=== PATIENT | female | born 1960 | race Caucasian/White ===

== ENCOUNTER 2017-10-12 18:02 | Emergency (ER) | payer SELFPAY ==
[~2017-10-12] VITALS: Ht 157.5 cm; Wt 62.3 kg
[2017-10-12 18:40] VITALS: BP 116/77
--- NOTE | 2017-10-12 18:47 | NUR ---
PT AMBULATES BACK TO THE LOBBY
--- NOTE | 2017-10-12 19:19 | NUR ---
PATIENT LEFT WITHOUT BEING SEEN BY DR. MOSELEY. NO FURTHER CARE PROVIDED FOR PATIENT.
== END 2017-10-12 19:19 | disposition left against medical advice (07) ==
LOC: MED 18:02
DX: R51 Headache (principal); Z53.21 Procedure and treatment not carried out due to patient leaving prior to being seen by health care provider

== ENCOUNTER 2021-09-26 18:29 | Emergency (ER) | payer OTHER ==
[~2021-09-26] VITALS: Ht 157.5 cm; Wt 79.4 kg
[2021-09-26 18:30] VITALS: BP 129/79
--- NOTE | 2021-09-26 18:32 | NUR ---
MELVA SWEET VIA GURNEY TO BED 09.
--- NOTE | 2021-09-26 18:35 | NUR ---
61 y/o F BIBA from home c/o abdominal distention and RLQ abdominal pain. Patient states abdominal distention is chronic for past 3 months, however, worsened this morning. Patient also states new onset of tremors; reports nausea, vomiting x 2 episodes since last night. Pain 8/10, sharp/intermittent, non-radiating; worsens after eating. Pt also states cough with SOB and cough since last night. Pt states she was discharged two weeks ago with pulmonary embolism. SpO2 94% on room air. Pt placed onto water project manager. VSS. Bed locked in lowest position, side rails x 1. PMH: PE, lupus Meds: xarelto, prilosec, zofran ODT Allergies: sulfa, reglan
--- NOTE | 2021-09-26 18:35 | NUR ---
PMH: systemic lupus with cerebritis, PE
--- NOTE | 2021-09-26 18:59 | NUR ---
Dr. Adams is evaluating pt at bedside
--- NOTE | 2021-09-26 19:12 | NUR ---
Report and transfer of care endorsed to ANABEL Mullins.
[2021-09-26] MEDS ORDERED: ONDANSETRON 4 MG/2 ML VIAL IVP ONE (19:20)
[2021-09-26] MEDS ORDERED: LOPERAMIDE 2 MG CAP PO ONE (19:20)
[2021-09-26] MEDS ORDERED: NACL 0.9% 1,000 ML IV ONE (19:20)
[2021-09-26] MEDS ORDERED: MORPHINE SULFATE 4 MG/ML SYR IVP ONE ×2 (19:20→20:55)
--- NOTE | 2021-09-26 19:30 | NUR ---
RECEIVED PT IN BED 9 WITH C/O ABDOMINAL PAIN. PT IS MOANING SLIGHTLY. POINTS TO ABDOMEN AND SAYS "IT IS SO BLOATED"
--- NOTE | 2021-09-26 19:40 | NUR ---
IV ESTABLISHED RIGHT EJ, LABS DRAWN AND SENT TO LAB
[2021-09-26 19:54] LABS: BASOPHILS # (AUTO) 0.1 K/uL (0.00-0.22); BASOPHILS % (AUTO) 1.4 % (0.0-2.0); EOSINOPHILS # (AUTO) 0.1 K/uL (0-0.4); EOSINOPHILS % (AUTO) 1.8 % (0.0-4.0); HEMATOCRIT 38.4 % (36-48); HEMOGLOBIN 13.2 g/dL (12.0-16.0); LYMPHOCYTES # (AUTO) 2.2 K/uL (2.5-16.5); LYMPHOCYTES % (AUTO) 34.5 % (20.5-51.1); MEAN CORPUSCULAR HEMOGLOBIN 31 pg (27-31); MEAN CORPUSCULAR HGB CONC 34 g/dL (33-37); MEAN CORPUSCULAR VOLUME 91.1 fL (80-94); MONOCYTES # (AUTO) 0.7 K/uL (0.8-1.0); MONOCYTES % (AUTO) 11.7 % (1.7-9.3); NEUTROPHILS # (AUTO) 3.2 K/uL (1.8-7.7); NEUTROPHILS % (AUTO) 50.6 % (42.2-75.2); PLATELET COUNT (AUTO) 205 K/uL (140-450); RED BLOOD CELL COUNT(AUTO) 4.22 MIL/uL (4.20-5.40); RED CELL DISTRIBUTION WIDTH 13.2 % (11.6-13.7); WHITE BLOOD COUNT (AUTO) 6.3 K/uL (4.8-10.8)
--- NOTE | 2021-09-26 19:55 | NUR ---
PT TAKEN TO CT
--- NOTE | 2021-09-26 20:08 | NUR ---
PT RETURN FROM CT
[2021-09-26 20:20] LABS: ALBUMIN 3.4 g/dL (3.4-5.0); ANION GAP 11.2 (8-16); CARBON DIOXIDE 28.1 mmol/L (21-32); CREATININE 0.8 mg/dL (0.6-1.3); POTASSIUM 4.3 mmol/L (3.5-5.1); TOTAL BILIRUBIN 0.5 mg/dL (0.0-1.0)
--- NOTE | 2021-09-26 20:52 | NUR ---
PT REQUESTING PAIN MEDICATION AND "SOMETHING TO HELP WITH MY ANXIETY." DR. CONCEPCION NOTIFIED.
[2021-09-26] MEDS ORDERED: LORazepam 2 MG/ML VIAL IVP ONE (20:55)
--- NOTE | 2021-09-26 21:05 | NUR ---
ASSISTED TO BR VIA W/C
[2021-09-26 22:08] LABS: APPEARANCE,URINE CLEAR (CLEAR); BILIRUBIN,URINE NEGATIVE (NEGATIVE); BLOOD, URINE TRACE-I (NEGATIVE); COLOR,URINE YELLOW (YELLOW); LEUKOCYTE ESTERASE ,URINE NEGATIVE (NEGATIVE); NITRITE, URINE NEGATIVE (NEGATIVE); UGLUCOSE NEGATIVE (NEGATIVE)
[2021-09-26] MEDS ORDERED: LOPE-143 PO (22:14)
[2021-09-26] MEDS ORDERED: ONDA-188 SL (22:14)
[2021-09-26] MEDS ORDERED: HYDR-5080 PO (22:14)
[2021-09-26 22:19] LABS: RBC,URINE 0-5 /HPF (0-5); WBC,URINE 0-5 /HPF (0-5)
[2021-09-26 23:40] VITALS: BP 118/72
--- NOTE | 2021-09-26 23:40 | NUR ---
Patient discharged with v/s stable. Written and verbal after care instructions given and explained. Patient verbalized understanding. Ambulatory with steady gait. All questions addressed prior to discharge. Advised to follow up with PMD.
== END 2021-09-26 23:40 | disposition home or self-care (01) ==
LOC: MED 18:29
DX: R10.31 Right lower quadrant pain (principal); R10.11 Right upper quadrant pain; R19.7 Diarrhea, unspecified; R82.71 Bacteriuria; Z79.899 Other long term (current) drug therapy; Z88.8 Allergy status to other drugs, medicaments and biological substances
CPT/HCPCS: 36415; 74176; 80053; 81001; 83605; 83690; 85025; 87040; 87426; 93005; 96361; 96374; 96375; 99285; J2060; J2270; J2405; J7030

== ENCOUNTER 2022-08-22 00:52 | Emergency (ER) | payer OTHER ==
[~2022-08-22] VITALS: Ht 165.1 cm; Wt 68.0 kg
[2022-08-22 00:52] VITALS: BP 117/71
[~2022-08-22 00:52] MED LIST: HYDR-5080 PO; LOPE-143 PO; ONDA-188 SL
--- NOTE | 2022-08-22 00:52 | NUR ---
TO LOBBY MICKI LUNDBERG FROM HOME WITH C/O NON TRAUMATIC LOWER BACK PAIN.
--- NOTE | 2022-08-22 03:14 | NUR ---
Patient taken to bed 4.
[2022-08-22] MEDS ORDERED: MORPHINE SULFATE 2 MG/ML SYR IM STA (04:03)
[2022-08-22] MEDS: LIDOCAINE 5% 1 EA PATCH TP STA (04:33)
[2022-08-22] MEDS: KETOROLAC 30 MG/ML VIAL IM ONE (04:36)
[2022-08-22] MEDS: fentaNYL citrate 0.05 MG/ML VIAL IM ONE (04:47)
[2022-08-22] MEDS ORDERED: NAPR-1704 PO (04:50)
[2022-08-22] MEDS ORDERED: LID5T TP (04:50)
[2022-08-22] MEDS ORDERED: ACET-8905 PO (04:50)
--- NOTE | 2022-08-22 05:00 | NUR ---
Attempted to collect urine, per pt, unable to get up due to back pain
[2022-08-22 05:39] VITALS: BP 117/71
== END 2022-08-22 05:35 | disposition home or self-care (01) ==
LOC: MED 00:52
DX: M54.50 Low back pain, unspecified (principal); M54.32 Sciatica, left side; Z79.899 Other long term (current) drug therapy
CPT/HCPCS: 81025; 96372; 99284; J1885; J3010; J2270

== ENCOUNTER 2023-03-26 14:33 | Emergency (ER) | payer OTHER ==
[~2023-03-26] VITALS: Ht 160 cm; Wt 77.1 kg
[~2023-03-26 14:33] MED LIST changes: +ACET-8905 PO; +LID5T TP; +NAPR-1704 PO
[2023-03-26 14:36] VITALS: BP 117/75; PULSE 70; RESP 17; TEMP 97.9; O2SAT 98
[2023-03-26] MEDS ORDERED: KETOROLAC 30 MG/ML VIAL IVP ONE (15:20)
[2023-03-26 15:56] VITALS: O2SAT 70
[2023-03-26 16:20] LABS: APPEARANCE,URINE CLEAR (CLEAR); BILIRUBIN,URINE NEGATIVE (NEGATIVE); BLOOD, URINE TRACE-I (NEGATIVE); COLOR,URINE YELLOW (YELLOW); LEUKOCYTE ESTERASE ,URINE 2+ (NEGATIVE); NITRITE, URINE NEGATIVE (NEGATIVE); PROTEIN,URINE NEGATIVE (NEGATIVE); UGLUCOSE NEGATIVE (NEGATIVE); UROBILINOGEN,URINE 0.2 EU/dL (0.2 - 1)
[2023-03-26 16:38] LABS: BACTERIA,URINE FEW /HPF (None Seen); SQUAMOUS EPITHELIAL CELL,UR 4-10 (MOD) /LPF (0-3 (FEW))
[2023-03-26] MEDS ORDERED: KETOROLAC 30 MG/ML VIAL ONE (17:00)
[2023-03-26 17:32] LABS: BASOPHILS # (AUTO) 0.1 K/uL (0.00-0.22); EOSINOPHILS # (AUTO) 0.1 K/uL (0-0.4); EOSINOPHILS % (AUTO) 1.7 % (0.0-4.0); HEMATOCRIT 37.3 % (36-48); HEMOGLOBIN 12.6 g/dL (12.0-16.0); LYMPHOCYTES # (AUTO) 2.5 K/uL (2.5-16.5); LYMPHOCYTES % (AUTO) 30.5 % (20.5-51.1); MEAN CORPUSCULAR HEMOGLOBIN 31 pg (27-31); MEAN CORPUSCULAR HGB CONC 34 g/dL (33-37); MEAN CORPUSCULAR VOLUME 90.8 fL (80-94); MONOCYTES # (AUTO) 0.6 K/uL (0.8-1.0); MONOCYTES % (AUTO) 7.7 % (1.7-9.3); NEUTROPHILS # (AUTO) 4.9 K/uL (1.8-7.7); NEUTROPHILS % (AUTO) 59.1 % (42.2-75.2); PLATELET COUNT (AUTO) 258 K/uL (140-450); RED CELL DISTRIBUTION WIDTH 13.7 % (11.6-13.7); WHITE BLOOD COUNT (AUTO) 8.3 K/uL (4.8-10.8)
[2023-03-26 17:50] LABS: ANION GAP 11.4 (8-16); CALCIUM 9.5 mg/dL (8.5-10.1); CARBON DIOXIDE 24.6 mmol/L (21-32); CREATININE 0.8 mg/dL (0.6-1.3)
[2023-03-26] MEDS ORDERED: CEPH-588 PO ×3 (18:08→18:13)
[2023-03-26] MEDS ORDERED: PRED20TA5 PO ×2 (18:11→18:12)
[2023-03-26] MEDS ORDERED: MORPHINE SULFATE 4 MG/ML SYR IVP ONE (18:55)
[2023-03-26 21:10] VITALS: BP 120/79; PULSE 73; RESP 16; TEMP 98; O2SAT 98
== END 2023-03-26 21:10 | disposition home or self-care (01) ==
LOC: MED 14:33
DX: M54.9 Dorsalgia, unspecified (principal); R07.9 Chest pain, unspecified; R20.0 Anesthesia of skin; R30.0 Dysuria; Z88.1 Allergy status to other antibiotic agents; Z79.899 Other long term (current) drug therapy; Z98.890 Other specified postprocedural states
CPT/HCPCS: 36415; 71045; 80048; 81001; 82948; 84484; 85025; 87086; 93005; 96374; 96375; 99285; J1885; J2270